=== PATIENT | female | born 1985 | race Caucasian/White ===

== ENCOUNTER 2022-06-20 07:46 | Emergency (ER) | payer OTHER, SELFPAY ==
[2022-06-20 07:47] VITALS: BP 142/85; PULSE 131; RESP 16; TEMP 36.6; O2SAT 99; BMI 24.4
--- NOTE | 2022-06-20 07:57 | EX.ED.DYSGE1 ---
HPI History of Present Illness Chief Complaint: Dizziness Narrative Narrative: 36-year-old female here with dizziness for last week. States symptoms are worsening. States she has been experiencing intermittent dizziness for the better part 1 week. States she gave blood last Friday and ever since has noted intermittent dizziness, fatigue, diffuse weakness. Denies shortness of breath or chest pain. Notes palpitations. Denies family history of early cardiac . Denies any drug use. Denies any alcohol use. Denies any excessive urination. The patient denies recent surgery in the last 4 weeks or immobilization in the last 3 days, denies previous diagnosis of DVT or PE, hemoptysis, unilateral leg swelling or malignancy with treatment the last 6 months. No estrogen use noted. Denies any abdominal pain, nausea or vomiting. Denies any bleeding diathesis Prior similar symptoms: No Recent Illness/Hospitalization: No PFSH PFSH Medical History no medical history Home Medications albuterol 90 mcg/actuation aerosol inhaler 2 mcg inhalation 06/20/22 [History Last Taken Unknown] amitriptyline 10 mg tablet 10 mg PO QHS 06/20/22 [History Last Taken Unknown] bupropion HCl 200 mg tablet,12 hr sustained-release 200 mg PO BID 06/20/22 [History Last Taken Unknown] cetirizine 10 mg tablet (Zyrtec) 10 mg PO DAILY 06/20/22 [History Last Taken Unknown] cholecalciferol (vitamin D3) 50 mcg (2,000 unit) capsule (Vitamin D3) 50 mcg PO DAILY 06/20/22 [History Last Taken Unknown] sumatriptan succinate 50 mg tablet (Imitrex) mg PO 06/20/22 [History Last Taken Unknown] Allergy/AdvReac Type Severity Reaction Status Date / Time clindamycin Allergy Rash Verified 06/20/22 07:49 tramadol Allergy Shortness Verified 06/20/22 07:49 of breath Family History no significant family his Surgical History no surgical history Social History Smoking Status: Former smoker ROS ROS ED ROS Narrative Constitutional: Denies fever, endorses fatigue HEENT: Denies sore throat Neck: Denies neck pain Cardiovascular: Endorses dizziness Respiratory: Denies shortness of breath GI: Denies nausea vomiting or abdominal pain : Denies changes in urinary habits Musculoskeletal: Denies muscle or joint pain Neurologic: Denies numbness weakness or loss of sensation Skin denies rash EXAM Physical Exam Narrative Exam Narrative: Nursing triage notes reviewed, Vital signs reviewed Constitutional: please see [facility] HENT: MMM Eyes: Pupils equal round and reactive to light, Extraocular muscles intact Neck: No stridor, no JVD, full neck ROM Lungs: Clear to auscultation, No wheezing or rales. No increased work of breathing, no conversational dyspnea, no accessory muscle use, no nasal flaring. No respiratory distress noted Heart: Fast rate and rhythm, No murmurs, No rubs and No gallops, 2+ distal pulses (radial, femoral, posterior tibial) in all extremities Abdomen: Soft, there is no tenderness, rigidity, rebound or guarding, no obvious peritoneal signs, no palpable pulsatile abdominal masses, no auscultated abdominal bruit : No CVAT Extremities: No edema Neuro: Alert and oriented x3, neuro exam at baseline, cranial nerves II through XII are intact. No pain with extraocular muscle movement. There is negative test of skew. Normal speech. 5 of 5 strength in upper and lower extremities in flexion extension. Intact sensation to light touch in upper and lower extremity dermatomes. No truncal or extremity ataxia. No dysdiadochokinesia. Normal gait. 2+ reflexes. No meningeal signs. Negative Babinski. NIH of 0 Skin: No rash or lesions noted Const Vital Signs: 06/20/22 07:47 06/20/22 08:11 06/20/22 09:48 Temperature 97.9 F Temperature Source Temporal Pulse Rate 131 H 106 H Respiratory Rate 16 Respiratory Effort Normal Non-Labored Blood Pressure 142/85 H Blood Pressure Mean 104 Pulse Ox 99 Oxygen Delivery Method Room Air 06/20/22 10:16 Temperature Temperature Source Pulse Rate 104 H Respiratory Rate 18 Respiratory Effort Blood Pressure 121/85 H Blood Pressure Mean Pulse Ox 98 Oxygen Delivery Method [facility] Narrative Medical decision making narrative: Chief Complaint: Dizziness External records reviewed: No recent ED visits or hospitalizations, reviewed stress test I considered the following differential diagnosis: Arrhythmia, anemia, myocardial ischemia, PE, pneumonia I obtained a broad lab and imaging work-up to further elucidate the etiology of patient's complaints. I gave the patient 1 L normal saline. Heart rate improved after 1 L normal saline down to 106. Labs not evidence of STEMI inflammation, severe anemia, evidence of VTE, dehydration, electrolyte abnormalities or ACS. Unknown etiology however unlikely be life-threatening given improved vitals, unremarkable exam, and no lab or imaging findings suggestive of acute life limiting etiology. She is encouraged to continue drinking fluids to take Zofran as needed and to follow with her primary care physician for outpatient follow-up and reevaluation Factors affecting care: history of asthma Social determinants of health: Former smoker History obtained from others: The patient's boyfriend Shared decision making: I will have a discussion with the patient and or visitors regarding risk/benefits of further testing or admission. They will be made aware of of the risk/benefits inherent in this decision they will be given the opportunity to voice understanding. Consults: None History & Record Review Discussion w/independent historian: Patient and Significant other Additional record(s) reviewed:: Prior outpatient record Lab Data Attestation: I reviewed the patient's lab results. Lab results narrative: CBC with no leukocytosis, no anemia, no thrombocytopenia BMP without evidence of significant electrolyte abnormalities, no anion gap, no acute kidney injury. D-dimer negative making VTE less likely Troponin is negative, no evidence of myocardial ischemia Labs: Laboratory Results - last 24 hr 06/20/22 06/20/22 06/20/22 08:15 08:15 08:15 WBC 6.1 RBC 4.12 L Hgb 12.8 Hct 39.4 MCV 95.6 MCH 31.1 MCHC 32.5 RDW Std Deviation 43.1 RDW Coeff of Amina 12.5 Plt Count 342 MPV 10.4 Immature Gran % (Auto) 0.200 Neut % (Auto) 51.7 Lymph % (Auto) 32.5 Smith % (Auto) 7.7 Eos % (Auto) 6.9 H Baso % (Auto) 1.0 Absolute Neuts (auto) 3.2 Absolute Lymphs (auto) 1.99 Nucleated RBC % 0 D-Dimer Quant (PE/DVT) < 0.27 L Sodium 138 Potassium 3.7 Chloride 103 Carbon Dioxide 28.0 Anion Gap 7 BUN 18 Creatinine 0.97 Estim Creat Clear Calc 58.15 Est GFR (MDRD) Af Amer 84 Est GFR (MDRD) Non-Af 69 BUN/Creatinine Ratio 18.6 Glucose 103 Calcium 9.2 Troponin I High Sens < 3 L Radiography Chest X-Ray - ED: Read by ED Physician Diagnostic Testing: Clinical Impression(s) from Imaging Studies Chest X-Ray 06/20/22 08:14 IMPRESSION: Normal x-ray examination of the chest. Electronically Signed: Fito Schilling MD at 8:47 EDT , I have personally reviewed the patient's chest x-ray. Chest x-ray is unremarkable for pulmonary edema, pneumothorax, pneumonia or focal cardiopulmonary abnormality. EKG Initial EKG: Attestation: I personally reviewed and interpreted this EKG as follows: Comments: EKG shows sinus tachycardia, normal axis, normal intervals, no STEMI, Brugada, ARVD, WPW Discharge Plan Triage Chief Complaint: Dizziness ED Provider: Robbie Villeda Dx/Rx/DC Orders Instructions: ED Dizziness, Uncertain Cause Prescriptions: No Action cetirizine [Zyrtec] 10 mg Tablet 10 mg PO DAILY sumatriptan succinate [Imitrex] 50 mg Tablet PO amitriptyline 10 mg Tablet 10 mg PO QHS albuterol 90 mcg/actuation Aerosol 2 mcg INHALATION bupropion HCl 200 mg tablet sustained-release 12 hr 200 mg PO BID cholecalciferol (vitamin D3) [Vitamin D3] 50 mcg (2,000 unit) Capsule 50 mcg PO DAILY Stand Alone Forms: ED Work / School Excuse, Work / School Excuse Primary Care Provider: Bao Mosley Referrals: Bao Mosley, [Primary Care Provider] - Activity Restrictions/Additional Instructions: Please return if your symptoms change or worsen. Please drink plenty of fluids. Please take Zofran as needed for nausea at home. Please take Tylenol, ibuprofen for any pain that may develop. Please follow with your primary care physician for outpatient testing including potentially a stress test, echocardiogram or other testing looking at the function of your heart. Disposition Disposition: Home, Self Care Discharge Date/Time: 06/20/22 10:17
--- NOTE | 2022-06-20 08:14 | RAD_ITS ---
STUDY: X-RAY CHEST REASON FOR EXAM: Female, 36 years old. Chest pain TECHNIQUE: Single AP portable view of the chest. COMPARISON: Comparison is made with prior study dated January 27, 2014. FINDINGS: EKG electrodes are seen. The lungs are clear and expanded. There is no demonstrated pleural abnormality. Normal size heart. Normal mediastinum and zaid. Normal visualized pulmonary arteries. Normal visualized aortic arch and descending thoracic aorta. Normal visualized thoracic spine. Normal visualized ribs, clavicles, and shoulders. There is no demonstrated abnormality of the visualized soft tissue structures of the upper abdomen. RAD/Chest 1 View (Portable) IMPRESSION: Normal x-ray examination of the chest. Electronically Signed: Fito Schilling MD at 8:47 EDT ,
[2022-06-20] MEDS: Aspirin 81 MG TAB.CHEW 324 MG PO (08:26)
[2022-06-20] MEDS: 0.9% Normal Saline 1,000 ML 999 ML IV (08:26)
[2022-06-20 08:31] LABS: Absolute Lymphocyte Count 1.99 X10^3/uL (0.83-4.51); Absolute Neutrophil Count 3.2 X10^3/uL (2.0-7.7); Basophil# 0.06 X10^3/uL; Eosinophil# 0.42 X10^3/uL; Eosinophils% 6.9 % (0-5); Hematocrit 39.4 % (37-47); Hemoglobin 12.8 g/dL (12.0-15.0); Lymphocyte # 1.99 X10^3/ul (0.83-4.51); Lymphocyte % 32.5 % (19-41); Mean Corp Hgb Conc 32.5 g/dL (32-36); Mean Corpuscular Hgb 31.1 pg (27.0-32.0); Mean Corpuscular Volume 95.6 fL (81-99); Mean Platelet Vol. 10.4 fl (6.2-12.0); Monocyte# 0.47 X10^3/uL; Monocyte% 7.7 % (0-10); NRBC Flagged by Analyzer 0 % (0-5); Neutrophil # 3.17 X10^3/uL (2.7-7.7); Neutrophil % 51.7 % (47-70); Platelet Count 342 K/mm3 (150-450); RBC Distribution Width CV 12.5 % (11.6-14.6); RBC Distribution Width SD 43.1 fl (35.1-43.9); Red Blood Count 4.12 M/mm3 (4.2-5.4); White Blood Count 6.1 K/mm3 (4.4-11.0)
[2022-06-20 08:49] LABS: Anion Gap 7 (5-15); BUN 18 mg/dL (7-18); BUN/Creat Ratio 18.6 RATIO (10-20); Calcium,Total 9.2 mg/dL (8.5-10.1); Chloride 103 mmol/L (98-107); Creatinine, Serum 0.97 mg/dL (0.55-1.02); EST Glomerular Filtration Rate 69 mL/min (>60); Est Glom Filt Rate - Afr Amer 84 mL/min (>60); Estimated Creatinine Clearance 58.15 ml/min; Glucose 103 mg/dL (74-106); Potassium 3.7 mmol/L (3.5-5.1); Sodium Level 138 mmol/L (136-145); Troponin-I HS < 3 pg/mL (3.0-54.0)
[2022-06-20 09:29] LABS: D-Dimer Quantitative (DVT/PE) < 0.27 FEU/ug/m (0.27-0.49)
[2022-06-20 09:48] VITALS: PULSE 106
[2022-06-20 10:16] VITALS: BP 121/85; PULSE 104; RESP 18; O2SAT 98
== END 2022-06-20 10:17 | disposition home or self-care (01) ==
PROVIDERS: Emergency Provider Emergency Medicine; PCP Student in an Organized Health Care Education/Training Program; Visit Provider Emergency Medicine
DX: R42 Dizziness and giddiness (principal); Z87.891 Personal history of nicotine dependence; R00.2 Palpitations
CPT/HCPCS: 71045; 80048; 84484; 85025; 85379; 93005; 96360; 96361; 99285; J7030; A4216